=== PATIENT | male | born 1955 | race Caucasian/White ===

== ENCOUNTER 2017-11-25 13:08 | Emergency (ER) | payer OTHER ==
[2017-11-25] MEDS ORDERED: Sodium Chloride 0.9% 1,000 ML IV ONE ×2 (13:12→14:58)
--- NOTE | 2017-11-25 13:17 | EDM.PDOC ---
ED HPI GENERAL MEDICAL PROBLEM - General Chief Complaint: Abdominal Pain Stated Complaint: LOWER ABD PAIN Time Seen by Provider: 11/25/17 13:12 - History of Present Illness INITIAL COMMENTS - FREE TEXT/NARRATIVE: HISTORY AND PHYSICAL: History of present illness: Patient 62-year-old white male presents concern of acute right lower quadrant abdominal pain he states is been somewhat off and on 1 week it got worse today with tactile fever there's been no nausea no vomiting he denies trauma or other concern Review of systems: As per history of present illness and below otherwise all systems reviewed and negative. Past medical history: As per history of present illness and as reviewed below otherwise noncontributory. Surgical history: As per history of present illness and as reviewed below otherwise noncontributory. Social history: No reported history of drug or alcohol abuse. Family history: As per history of present illness and as reviewed below otherwise noncontributory. Physical exam: HEENT: Atraumatic, normocephalic, pupils reactive, negative for conjunctival pallor or scleral icterus, mucous membranes moist, throat clear, neck supple, nontender, trachea midline. Lungs: Clear to auscultation, breath sounds equal bilaterally, chest nontender. Heart: S1S2, regular, negative for clicks, rubs, or JVD. Abdomen: Soft, nondistended, localized tenderness in right lower quadrant with voluntary guarding noted.. Negative for masses or hepatosplenomegaly. Negative for costovertebral tenderness. Pelvis: Stable nontender. Genitourinary: Deferred. Rectal: Deferred. Extremities: Atraumatic, negative for cords or calf pain. Neurovascular unremarkable. Neuro: Awake, alert, oriented. Cranial nerves II through XII unremarkable. Cerebellum unremarkable. Motor and sensory unremarkable throughout. Exam nonfocal. Diagnostics: CBC CMP UA CT abdomen and pelvis with IV contrast Therapeutics: Saline 1 L bolus Impression: #1 acute right lower quadrant abdominal pain Definitive disposition and diagnosis as appropriate pending reevaluation and review of above. - Related Data Allergies Allergy/AdvReac Type Severity Reaction Status Date / Time No Known Allergies Allergy Verified 11/25/17 13:42 Home Meds: Home Meds Aspirin [Ecotrin] 81 mg PO DAILY 11/25/17 [History] Pravastatin [Pravachol] 20 mg PO DAILY 11/25/17 [History] Ramipril 5 mg PO DAILY 11/25/17 [History] ED ROS GENERAL - Review of Systems Review Of Systems: ROS reveals no pertinent complaints other than HPI. ED EXAM, GENERAL - Physical Exam Exam: See Below (See dictation) Course - Vital Signs Last Recorded V/S: Last Vital Signs Temp 37.1 C 11/25/17 13:17 Pulse 76 11/25/17 13:17 Resp 18 11/25/17 13:17 BP 146/85 H 11/25/17 13:17 Pulse Ox 96 11/25/17 13:17 - Orders/Labs/Meds Orders: Active Orders 24 hr Category Date Time Status Abdomen Pelvis w Cont [CT] Stat Exams 11/25/17 13:12 Taken Piperacillin/Tazobactam [Piperacil-Tazobact] 3.375 gm Med 11/25/17 14:58 Ordered Sodium Chloride 0.9% [Normal Saline] 50 ml IV ONETIME Sodium Chloride 0.9% [Normal Saline] 1,000 ml Med 11/25/17 14:58 Active IV .Bolus metroNIDAZOLE/Normal Saline [Flagyl 500 MG in NS 100 ML Med 11/25/17 14:58 Ordered ] 500 mg Premix Bag 1 bag IV ONETIME Medication Orders Metronidazole 500 mg/ Premix 100 mls @ 100 mls/hr IV ONETIME ONE Stop: 11/25/17 15:57 Piperacillin Sod/Tazobactam (Sod 3.375 gm/ Sodium Chloride) 50 mls @ 100 mls/ hr IV ONETIME ONE Stop: 11/25/17 15:27 Sodium Chloride (Normal Saline) 1,000 mls @ 999 mls/hr IV .Bolus ONE Stop: 11/25/17 15:58 Labs: Laboratory Tests 11/25/17 11/25/17 11/25/17 Range/Units 13:25 13:25 13:25 WBC 16.18 H (4.0-11.0) K/uL RBC 4.28 L (4.50-5.90) M/uL Hgb 13.5 (13.0-17.0) g/dL Hct 40.3 (38.0-50.0) % MCV 94.2 (80.0-98.0) fL MCH 31.5 (27.0-32.0) pg MCHC 33.5 (31.0-37.0) g/dL RDW Std Deviation 45.9 (28.0-62.0) fl RDW Coeff of Ludivina 13 (11.0-15.0) % Plt Count 277 (150-400) K/uL MPV 10.40 (7.40-12.00) fL Add Manual Diff YES Neutrophils % (Manual) 74 (48.0-80.0) % Lymphocytes % (Manual) 18 (16.0-40.0) % Monocytes % (Manual) 8 (0.0-15.0) % Nucleated RBC % 0.0 /100WBC Absolute Seg Neuts 12.0 H (1.4-5.7) Lymphocytes # (Manual) 2.9 H (0.6-2.4) Monocytes # (Manual) 1.3 H (0.0-0.8) Nucleated RBCs # 0 K/uL Sodium 137 (136-146) mmol/L Potassium 3.9 (3.5-5.1) mmol/L Chloride 103 (98-110) mmol/L Carbon Dioxide 23 (21-31) mmol/L BUN 18 (6.0-23.0) mg/dL Creatinine 1.1 (0.6-1.5) mg/dL Est Cr Clr Drug Dosing 79.70 mL/min Estimated GFR (MDRD) > 60.0 ml/min Glucose 113 H (60-110) mg/dL Calcium 9.2 (8.8-10.8) mg/dL Total Bilirubin 0.7 (0.1-1.5) mg/dL AST 20 (5-40) IU/L ALT 43 (8-54) IU/L Alkaline Phosphatase 61 (40-150) Total Protein 7.7 (6.0-8.0) g/dL Albumin 3.8 (3.4-4.8) g/dL Globulin 3.9 H (2.0-3.5) g/dL Albumin/Globulin Ratio 1.0 L (1.3-2.8) Urine Color YELLOW Urine Appearance CLEAR Urine pH 6.0 (5.0-8.0) Ur Specific [place] 1.020 (1.001-1.035) Urine Protein TRACE (NEGATIVE) mg/dL Urine Glucose (UA) NEGATIVE (NEGATIVE) mg/dL Urine Ketones NEGATIVE (NEGATIVE) mg/dL Urine Occult Blood MODERATE (NEGATIVE) Urine Nitrite NEGATIVE (NEGATIVE) Urine Bilirubin NEGATIVE (NEGATIVE) Urine Urobilinogen 0.2 (<2.0) EU/dL Ur Leukocyte Esterase NEGATIVE (NEGATIVE) Urine RBC 0-3 (0-2/HPF) Urine WBC 2-4 (0-5/HPF) Ur Epithelial Cells FEW (NONE-FEW) Calcium Oxalate Crystal OCCASIONAL (NEGATIVE) Urine Bacteria FEW (NEGATIVE) Urine Mucus LIGHT (NONE-MOD) Meds: Medications Generic Name Dose Route Start Last Admin Trade Name Freq PRN Reason Stop Dose Admin Metronidazole 500 mg/ Premix 100 mls @ 100 mls/hr 11/25/17 14:58 IV 11/25/17 15:57 ONETIME ONE Piperacillin Sod/Tazobactam 50 mls @ 100 mls/hr 11/25/17 14:58 Sod 3.375 gm/ Sodium Chloride IV 11/25/17 15:27 ONETIME ONE Sodium Chloride 1,000 mls @ 999 mls/hr 11/25/17 14:58 Normal Saline IV 11/25/17 15:58 .Bolus ONE Discontinued Medications Generic Name Dose Route Start Last Admin Trade Name Freq PRN Reason Stop Dose Admin Sodium Chloride 1,000 mls @ 999 mls/hr 11/25/17 13:12 11/25/17 13:32 Normal Saline IV 11/25/17 14:12 999 mls/hr STAT ONE Administration Iopamidol 100 ml 11/25/17 13:21 11/25/17 13:25 Isovue Multipack-370 (76%) IVPUSH 11/25/17 13:22 100 ml ONETIME STA Administration Departure - Departure Time of Disposition: 14:59 Disposition: Home, Self-Care 01 Condition: Good Clinical Impression: Perforated appendicitis - Discharge Information Forms: ED Department Discharge - My Orders Last 24 Hours: My Active Orders 11/25/17 13:12 Abdomen Pelvis w Cont [CT] Stat 11/25/17 14:58 Piperacillin/Tazobactam [Piperacil-Tazobact] 3.375 gm Sodium Chloride 0.9% [ Normal Saline] 50 ml IV ONETIME Sodium Chloride 0.9% [Normal Saline] 1,000 ml IV .Bolus metroNIDAZOLE/Normal Saline [Flagyl 500 MG in NS 100 ML] 500 mg Premix Bag 1 bag IV ONETIME - Assessment/Plan Last 24 Hours: My Active Orders 11/25/17 13:12 Abdomen Pelvis w Cont [CT] Stat 11/25/17 14:58 Piperacillin/Tazobactam [Piperacil-Tazobact] 3.375 gm Sodium Chloride 0.9% [ Normal Saline] 50 ml IV ONETIME Sodium Chloride 0.9% [Normal Saline] 1,000 ml IV .Bolus metroNIDAZOLE/Normal Saline [Flagyl 500 MG in NS 100 ML] 500 mg Premix Bag 1 bag IV ONETIME
[2017-11-25] MEDS ORDERED: Iopamidol 755 MG/ML 500 ML Multipack Bottle IVPUSH STA (13:21)
[2017-11-25 14:04] LABS: CHLORIDE,CL 103 mmol/L (98-110); SODIUM,NA 137 mmol/L (136-146)
[2017-11-25] MEDS ORDERED: Acetaminophen 650 MG Supp RECTAL ONE (14:58)
[2017-11-25] MEDS ORDERED: Piperacillin/Tazobactam 3.375 GM in Sodium Chloride 0.9% 50 ML IV ONE (14:58)
[2017-11-25] MEDS ORDERED: metroNIDAZOLE/Normal Saline 500 MG in Premix Bag 1 BAG IV ONE (14:58)
--- NOTE | 2017-11-25 15:54 | PCM.CONS ---
H&P History of Present Illness - General Date of Service: 11/25/17 Admit Problem/Dx: Admission Diagnosis/Problem Admission Diagnosis/Problem Appendicitis Source of Information: Patient History Limitations: Reports: No Limitations - History of Present Illness Initial Comments - Free Text/Narative: Patient is a 62 yo male who presents with one week of RLQ pain. He is from [place] and was visiting family. He developed diaphoresis, chills and sharp stabbing RLQ pain over the last 2 days. He denies nausea, vomiting, or malaise. His family told him to come to the ED. He was found to have a WBC of 16K and CT of the abdomen pelvis showed a perforated appendix associated with a 6 x 3.8 cm abscess. Right Abdominal Pain Score (Numeric/FACES): 7 - Related Data Allergies/Adverse Reactions: Allergies Allergy/AdvReac Type Severity Reaction Status Date / Time No Known Allergies Allergy Verified 11/25/17 13:42 Home Medications: Home Meds Aspirin [Ecotrin] 81 mg PO DAILY 11/25/17 [History] Pravastatin [Pravachol] 20 mg PO DAILY 11/25/17 [History] Ramipril 5 mg PO DAILY 11/25/17 [History] Past Medical History Cardiovascular History: Reports: High Cholesterol, Hypertension - Infectious Disease History Infectious Disease History: Reports: Measles - Past Surgical History Musculoskeletal Surgical History: Reports: Amputation, Carpal Tunnel, ORIF Social & Family History - Family History Family Medical History: Noncontributory - Tobacco Use Smoking Status *Q: Former Smoker Used Tobacco, but Quit: Yes Month Tobacco Last Used: 07/2017 - Caffeine Use Caffeine Use: Reports: None - Recreational Drug Use Recreational Drug Use: No H&P Review of Systems - Review of Systems: Review Of Systems: ROS reveals no pertinent complaints other than HPI. Exam - Exam Exam: See Below - Vital Signs Vital Signs: Last Vital Signs Temp 39.5 C H 11/25/17 15:24 Pulse 76 11/25/17 13:17 Resp 18 11/25/17 13:17 BP 146/85 H 11/25/17 13:17 Pulse Ox 96 11/25/17 13:17 Weight: 132.2 kg - Exam General: Alert, Oriented HEENT: Conjunctiva Clear, EACs Clear, EOMI, Mucosa Moist & [place], Nares Patent, Posterior Pharynx Clear, Pupils Equal, Pupils Reactive Neck: Supple, Trachea Midline Lungs: Clear to Auscultation, Normal Respiratory Effort Cardiovascular: Regular Rate, Regular Rhythm GI/Abdominal Exam: Soft, No Distention, Guarding (RLQ), Rebound (RLQ), Tender ( RLQ) Back Exam: Normal Inspection - Patient Data Lab Results Last 24 hrs: Laboratory Results - last 24 hr 11/25/17 11/25/17 11/25/17 Range/Units 13:25 13:25 13:25 WBC 16.18 H (4.0-11.0) K/uL RBC 4.28 L (4.50-5.90) M/uL Hgb 13.5 (13.0-17.0) g/dL Hct 40.3 (38.0-50.0) % MCV 94.2 (80.0-98.0) fL MCH 31.5 (27.0-32.0) pg MCHC 33.5 (31.0-37.0) g/dL RDW Std Deviation 45.9 (28.0-62.0) fl RDW Coeff of Ludivina 13 (11.0-15.0) % Plt Count 277 (150-400) K/uL MPV 10.40 (7.40-12.00) fL Add Manual Diff YES Neutrophils % (Manual) 74 (48.0-80.0) % Lymphocytes % (Manual) 18 (16.0-40.0) % Monocytes % (Manual) 8 (0.0-15.0) % Nucleated RBC % 0.0 /100WBC Absolute Seg Neuts 12.0 H (1.4-5.7) Lymphocytes # (Manual) 2.9 H (0.6-2.4) Monocytes # (Manual) 1.3 H (0.0-0.8) Nucleated RBCs # 0 K/uL Lactate (0.20-2.00) mmol/L Sodium 137 (136-146) mmol/L Potassium 3.9 (3.5-5.1) mmol/L Chloride 103 (98-110) mmol/L Carbon Dioxide 23 (21-31) mmol/L BUN 18 (6.0-23.0) mg/dL Creatinine 1.1 (0.6-1.5) mg/dL Est Cr Clr Drug Dosing 79.70 mL/min Estimated GFR (MDRD) > 60.0 ml/min Glucose 113 H (60-110) mg/dL Calcium 9.2 (8.8-10.8) mg/dL Total Bilirubin 0.7 (0.1-1.5) mg/dL AST 20 (5-40) IU/L ALT 43 (8-54) IU/L Alkaline Phosphatase 61 (40-150) Total Protein 7.7 (6.0-8.0) g/dL Albumin 3.8 (3.4-4.8) g/dL Globulin 3.9 H (2.0-3.5) g/dL Albumin/Globulin Ratio 1.0 L (1.3-2.8) Urine Color YELLOW Urine Appearance CLEAR Urine pH 6.0 (5.0-8.0) Ur Specific [place] 1.020 (1.001-1.035) Urine Protein TRACE (NEGATIVE) mg/dL Urine Glucose (UA) NEGATIVE (NEGATIVE) mg/dL Urine Ketones NEGATIVE (NEGATIVE) mg/dL Urine Occult Blood MODERATE (NEGATIVE) Urine Nitrite NEGATIVE (NEGATIVE) Urine Bilirubin NEGATIVE (NEGATIVE) Urine Urobilinogen 0.2 (<2.0) EU/dL Ur Leukocyte Esterase NEGATIVE (NEGATIVE) Urine RBC 0-3 (0-2/HPF) Urine WBC 2-4 (0-5/HPF) Ur Epithelial Cells FEW (NONE-FEW) Calcium Oxalate Crystal OCCASIONAL (NEGATIVE) Urine Bacteria FEW (NEGATIVE) Urine Mucus LIGHT (NONE-MOD) 11/25/17 Range/Units 15:09 WBC (4.0-11.0) K/uL RBC (4.50-5.90) M/uL Hgb (13.0-17.0) g/dL Hct (38.0-50.0) % MCV (80.0-98.0) fL MCH (27.0-32.0) pg MCHC (31.0-37.0) g/dL RDW Std Deviation (28.0-62.0) fl RDW Coeff of Ludivina (11.0-15.0) % Plt Count (150-400) K/uL MPV (7.40-12.00) fL Add Manual Diff Neutrophils % (Manual) (48.0-80.0) % Lymphocytes % (Manual) (16.0-40.0) % Monocytes % (Manual) (0.0-15.0) % Nucleated RBC % /100WBC Absolute Seg Neuts (1.4-5.7) Lymphocytes # (Manual) (0.6-2.4) Monocytes # (Manual) (0.0-0.8) Nucleated RBCs # K/uL Lactate 0.8 (0.20-2.00) mmol/L Sodium (136-146) mmol/L Potassium (3.5-5.1) mmol/L Chloride (98-110) mmol/L Carbon Dioxide (21-31) mmol/L BUN (6.0-23.0) mg/dL Creatinine (0.6-1.5) mg/dL Est Cr Clr Drug Dosing mL/min Estimated GFR (MDRD) ml/min Glucose (60-110) mg/dL Calcium (8.8-10.8) mg/dL Total Bilirubin (0.1-1.5) mg/dL AST (5-40) IU/L ALT (8-54) IU/L Alkaline Phosphatase (40-150) Total Protein (6.0-8.0) g/dL Albumin (3.4-4.8) g/dL Globulin (2.0-3.5) g/dL Albumin/Globulin Ratio (1.3-2.8) Urine Color Urine Appearance Urine pH (5.0-8.0) Ur Specific [place] (1.001-1.035) Urine Protein (NEGATIVE) mg/dL Urine Glucose (UA) (NEGATIVE) mg/dL Urine Ketones (NEGATIVE) mg/dL Urine Occult Blood (NEGATIVE) Urine Nitrite (NEGATIVE) Urine Bilirubin (NEGATIVE) Urine Urobilinogen (<2.0) EU/dL Ur Leukocyte Esterase (NEGATIVE) Urine RBC (0-2/HPF) Urine WBC (0-5/HPF) Ur Epithelial Cells (NONE-FEW) Calcium Oxalate Crystal (NEGATIVE) Urine Bacteria (NEGATIVE) Urine Mucus (NONE-MOD) Result Diagrams: 11/25/17 13:25 11/25/17 13:25 Consult PN Assessment/Plan (1) Perforated appendicitis SNOMED Code(s): 29558099 Code(s): K35.2 - ACUTE APPENDICITIS WITH GENERALIZED PERITONITIS Current Visit: Yes Problem List Initiated/Reviewed/Updated: Yes My Orders Last 24 Hours: This patient should be treated with an interventional placed drain given that his pain has been present for a week and that he has known ruptured appendicitis associated with an abscess. I explained to him that with drain placement and antibiotics he can hopefully go without surgery and potentially have an interval appendectomy in 6-8 weeks once all the inflammation has resolved. He may still require surgery if this doesnt improve. He will be transferred for further management since our radiologist isnt here today.
--- NOTE | 2017-11-26 16:38 | CT ---
EXAM DATE: 11/25/17 PATIENT'S AGE: 62 Patient: RAUL VELAZQUEZ Facility: [place], [place] Site . Site : [id number] Study: CT Abdomen/Pelvis [id number] 2:31:13 PM Ordering Physician: Doctor Sorto Final Report: INDICATION: Right lower quadrant abdominal pain with fever started initially 2 weeks ago. Comparison: None. Technique: CT abdomen and pelvis with intravenous contrast; no oral contrast; coronal and sagittal reformats. Findings: No abnormal intra pulmonary nodular densities through the lung bases. No evidence of pleural effusion. Normal size cardiac silhouette without any evidence of pericardial effusion. 3.6 x 2.3 cm lesion identified in the dome of the liver; rule out cavernous hemangioma. Cyst identified in segment 2 of the liver. Several other smaller cysts identified elsewhere in the liver. No splenic pathology. No pancreatic pathology. Gallbladder is unremarkable. No adrenal pathology. Nonobstructing calculi identified in the upper pole calices left kidney. Multiple small cysts throughout both kidneys. No retroperitoneal lymphadenopathy. No evidence of abdominal or pelvic ascites. Extensive inflammatory changes identified in the pericecal area in the expected location of the appendix. Ruptured appendiceal tip with a periappendiceal abscess identified in the right lower quadrant measuring 6.1 x 3.8 cm as measured on slice 96 of series 201. No pneumoperitoneum. Diverticulosis sigmoid colon without any CT evidence of diverticulitis or abscess. Splenic vein, superior mesenteric vein and the portal vein are unremarkable. Impression: Acute appendicitis with ruptured appendix and periappendiceal abscess in the right lower quadrant of the abdomen. 1. Cavernous hemangioma dome of the liver. 2. Benign cysts in the liver. 3. Multiple small cysts throughout both kidneys. 4. No pneumoperitoneum. 5. No evidence of intestinal obstruction. 6. Nonobstructing calculus upper pole calyx left kidney. Please note that all CT scans at this facility use dose modulation, iterative reconstruction, and/or weight-based dosing when appropriate to reduce radiation dose to as low as reasonably achievable. Dictated by Joshua Esquivel MD @ Nov 25 2017 2:41PM (Electronic Signature) Report Signed by Proxy. TANYA
== END 2017-11-25 16:20 ==
LOC: MW.ED 13:08
DX: K35.2 Acute appendicitis with generalized peritonitis (principal); Z79.82 Long term (current) use of aspirin; Z79.899 Other long term (current) drug therapy
CPT/HCPCS: 36415; 74177; 80053; 81001; 83605; 85025; 87040; 96361; 96365; 96367; 99285; A9270; J2543; J7040; J7050; Q9967; 99284